=== PATIENT | female | born 1960 | race Caucasian/White ===

== ENCOUNTER 2017-05-15 12:33 | Inpatient (IN) | payer OTHER ==
[~2017-05-15] VITALS: Ht 162.6 cm; Wt 89.1 kg
[2017-05-15 13:09] LABS: BASOPHIL % 0.4 % (0-2); PLATELET COUNT 270 x10^3mcL (130-400)
[2017-05-15 13:12] LABS: RED CELL DISTRIBUTION WIDTH 14.7 % (11.5-14.5)
[2017-05-15 13:28] LABS: CALCIUM 10.1 mg/dL (8.5-10.1); CARBON DIOXIDE 30.5 mmol/L (21-32); CHLORIDE SERUM 102 mmol/L (98-107); GFR1 > 60 mL/min; GLUCOSE SERUM 99 mg/dL (74-106); POTASSIUM SERUM 4.7 mmol/L (3.5-5.1); SODIUM SERUM 141 mmol/L (136-145)
[2017-05-15 13:32] LABS: ALBUMIN 4.2 g/dL (3.4-5.0); ALKALINE PHOSPHATASE 68 U/L (46-116); ALT/SGPT 29 U/L (14-59); AST/SGOT 16 U/L (15-37); BILIRUBIN TOTAL 0.3 mg/dL (0.20-1.00); TOTAL PROTEIN, SERUM 8.1 g/dL (6.4-8.2)
[2017-05-15] MEDS ORDERED: METFORMIN HCL500 MG PO (14:42)
[2017-05-15] MEDS ORDERED: BIOTIN1 MG (14:43)
[2017-05-15] MEDS ORDERED: ZESTRIL5 MG PO (14:43)
[2017-05-15] MEDS ORDERED: OSTERA TABLET1 EACH PO (14:43)
[2017-05-15 15:48] LABS: T3 TOTAL 0.91 ng/mL
[2017-05-15 15:56] VITALS: BP 118/79
[2017-05-15 15:57] LABS: MAGNESIUM 2.1 mg/dL (1.8-2.4); PHOSPHOROUS 3.8 mg/dL (2.5-4.9)
[2017-05-15 16:04] LABS: FREE T4 1.18 ng/dL (0.76-1.46); FREE THYROXINE INDEX 4.1 ug/dL (1.4-4.5); T4(THYROXINE) 11.6 ug/dL (4.7-13.3)
[2017-05-15 16:17] LABS: CHOLESTEROL/HDL RATIO 4.1
[2017-05-15 17:28] VITALS: BP 118/79
[2017-05-15 20:51] VITALS: BP 135/78
[2017-05-16 05:14] VITALS: BP 115/70
[2017-05-16 06:54] LABS: BASOPHIL % 0.4 % (0-2); PLATELET COUNT 211 x10^3mcL (130-400)
[2017-05-16 06:57] LABS: CALCIUM 8.4 mg/dL (8.5-10.1); CARBON DIOXIDE 26.9 mmol/L (21-32); CHLORIDE SERUM 105 mmol/L (98-107); GFR1 > 60 mL/min; GLUCOSE SERUM 103 mg/dL (74-106); MAGNESIUM 1.6 mg/dL (1.8-2.4); PHOSPHOROUS 3.5 mg/dL (2.5-4.9); SODIUM SERUM 141 mmol/L (136-145)
[2017-05-16 06:58] LABS: RED CELL DISTRIBUTION WIDTH 14.6 % (11.5-14.5)
[2017-05-16 08:33] VITALS: BP 131/78
[2017-05-16] MEDS ORDERED: MOBIC PO (12:58)
[2017-05-16] MEDS ORDERED: ZETIA10 M1 PO (12:58)
[2017-05-16] MEDS ORDERED: SYN125 PO (12:59)
[2017-05-16] MEDS ORDERED: PRI20 PO (12:59)
[2017-05-16 13:15] VITALS: Ht 162.6 cm; Wt 89.1 kg
[2017-05-16 14:00] VITALS: BP 112/68
[2017-05-16 14:33] LABS: UA SPECIFIC GRAVITY 1.015 (1.005-1.035); microscopic required? YES; urine erythrocyte NEGATIVE (NEGATIVE)
[2017-05-16 14:44] LABS: AMPHETAMINE QUAL UR NONE DETECTED (NEG <=1000)
[2017-05-16] MEDS ORDERED: LAC PO (15:07)
[2017-05-16] MEDS ORDERED: LEVAQUIN750 MG PO (15:07)
[2017-05-16] MEDS ORDERED: METFORMIN HCL1000 MG PO (15:09)
[2017-05-16] MEDS ORDERED: GLU500 PO (15:09)
== END 2017-05-16 16:50 | disposition home or self-care (01) | DRG 391 ==
LOC: ED 12:33 → DU 14:33
PROVIDERS: Emergency Medicine; Family Medicine
DX: K21.9 Gastro-esophageal reflux disease without esophagitis (principal); N17.0 Acute kidney failure with tubular necrosis; N39.0 Urinary tract infection, site not specified; I42.2 Other hypertrophic cardiomyopathy; E11.65 Type 2 diabetes mellitus with hyperglycemia; E83.51 Hypocalcemia; I08.1 Rheumatic disorders of both mitral and tricuspid valves; I37.1 Nonrheumatic pulmonary valve insufficiency; I10 Essential (primary) hypertension; E03.9 Hypothyroidism, unspecified; M19.90 Unspecified osteoarthritis, unspecified site; E78.5 Hyperlipidemia, unspecified; Z90.721 Acquired absence of ovaries, unilateral; Z79.84 Long term (current) use of oral hypoglycemic drugs
CPT/HCPCS: 82962; 83880; 84439; J3490; J7030; Q0092